=== PATIENT | male | born 1995 | race Caucasian/White ===

== ENCOUNTER 2019-03-31 23:13 | Emergency (ER) | payer SELFPAY ==
[~2019-03-31] VITALS: Ht 170.2 cm; Wt 77.0 kg
[2019-04-01 03:38] VITALS: BP 120/77
== END 2019-04-01 03:38 | disposition home or self-care (01) ==
LOC: ER 23:13
DX: T54.91XA Toxic effect of unspecified corrosive substance, accidental (unintentional), initial encounter (principal); F12.10 Cannabis abuse, uncomplicated; Y92.89 Other specified places as the place of occurrence of the external cause
CPT/HCPCS: 99283